=== PATIENT | male | born 1955 | race Caucasian/White ===

== ENCOUNTER 2025-08-17 13:32 | Emergency (ER) | payer MEDICARE, OTHER, SELFPAY ==
[2025-08-17] VITALS (51 sets, daily range): BP systolic 102–165; BP diastolic 68–115; BMI 32.6
--- NOTE | 2025-08-17 13:43 | CON.NEURO ---
Documented by User: Chandrakant Muniz MD 08/17/25 17:18
Neuro Assessment/Plan
Assessment
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 Etiology of his thrombus remains crytptogenic given
relatively unremarkable PMH; suspect cardiomebolic or paradoxical embolism (?recent flight). He appears to have a significant recovery s/p TNK with repeat CTA demonstrating patency of the basilar artery and only mild residual R P1. However given
significantly fluctuating mentation and mild residual symptoms (dysarthria, nystagmus, ataxia), warrants close monitoring s/p TNK and thrombectomy watch. Another additional possiblity is acute symptomatic seizure given rapid improvement and apparent
foaming at the mouth on arrival; although no convulsion was witnessed.
Plan
- transfer initiated to [facility] for closer monitoring/thrombectomy watch
- s/p TNK (08/17 14:10).
- repeat non-contrast head CT in 24 hours
- hold all AC including DVT pending repeat head CT; if no evidence of bleed can start ASA 81 mg
- continue NIHSS per unit protocol
- start atorvastatin 40 mg daily
- teletmetry monitoring, consider ILR for AFIB monitoring
- BP goal <180/105 s/p TNK
- consider rEEG vs LTM given potential concern for seizrue
Consultation
Order
Date of Consultation: 08/17/25
Requesting Provider: Doc
Reason for Consult: Stroke
Subjective/Objective
Subjective Data
Date of Service: August 17, 2025
Objective Data
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
Last known well was around 13:00. 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 Upon landing, he reported left sided headache and mild expressive aphasia. He then had presyncopal symptoms and collapsed after losing his balance with
likely LOC. On EMS arrival, he was noted to be hypertensive with foaming at the mouth, however without witnessed convulsion.
Initial NIHSS at 13:40 was 18 (-1 LOC, -2 LOC commands, -2 LOC questions, -1 right nasolabial fold flattening, -4 RUE drift, -4 RLE drift, -3 severe aphasia, -1 dysarthria). Initial NCHCT demonstrated no large transcortical infarct or hemmorrhage,
CTA with high grade stenosis of basilar and bilateral proximal P1 high grade stenosis with distal reconstitution.
He was deemed a candidate for TNK, which was administered at 14:10. Several minutes after, the patient symptoms rapidly improved and he was awake, alert, conversant without focal weakness or aphasia (NIHSS ~1 for RUE ataxia). Over the course of the
next hour, his symptoms continued to fluctuate with intermittent lethargy/mild aphasia, worsening RUE ataxia, however overall significantly improved from arrival. BP remained <180/105.
Repeat NIHSS 14:50 was 4 (-1 LOC, -1 mild aphasia, -1 dysarthria, -1 ataxia)
Repeat CTA demonstrated significant improvement of the basilar and P1 thrombus, with only mild residual thrombus in the RP1.
After discussion with [facility], he was transferred to [facility] for further management.
While there was initial mention for AFIB per EMS, this has not been independently verified via chart review and family denies this diagnosis. He is not on any AC and no recent surgeries.
CTAH&N 08/17 13:33: Thrombus in the distal segment of the basilar artery and the proximal P1 segments of the bilateral posterior cerebral arteries with resultant high-grade stenoses. Reconstitution of flow to the bilateral P2 segments, likely from
small patent bilateral posterior communicating arteries.
REPEAT CTA Head 08/17 14:42
Significant improvement of the previously seen basilar artery and bilateral posterior cerebral artery (P1 segment) thrombus. The basilar artery now appears widely patent. Only mild residual thrombus in the right P1 segment, and suspected minimal
thrombus at the junction of the basilar artery and left P1 segment.
Other findings are unchanged compared to the recent prior CT angiogram.
Abnormal Lab Results
08/17/25 08/17/25
13:56 13:59
RBC 4.47 L 10^6/uL
(4.70-6.10)
RDW 14.6 H %
(11.5-14.5)
Plt Count 129 L 10^3/uL
(130-400)
MPV 10.5 H fL
(7.4-10.4)
Absolute Lymphs (auto) 1.0 L 10^3/uL
(1.2-3.4)
Absolute Monos (auto) 1.0 H 10^3/uL
(0.1-0.6)
Lymphocytes % 12.5 L %
(20.5-51.1)
Monocytes % 12.1 H %
(1.7-9.3)
PT 17.1 H Sec
(11.4-14.6)
BUN 27 H mg/dl
(9-20)
Creatinine 1.5 H mg/dL
(0.7-1.3)
Glucose 103 H mg/dl
(70-99)
Troponin I 0.055 H* ng/ml
POC Glucose 107 H mg/dl
(70-99)
08/17/25 13:56
08/17/25 13:56
Vital Signs
Initial and Last Documented VS:
Initial Vital Signs
Pulse Resp BP Pulse Ox
74 20 141/89 96
08/17/25 13:57 08/17/25 13:57 08/17/25 13:57 08/17/25 13:57
Last Documented Vital Signs
Pulse Resp BP Pulse Ox
79 19 145/82 88
08/17/25 15:19 08/17/25 15:19 08/17/25 15:19 08/17/25 15:05
CVA Assessment
Onset of Stroke Symptoms
Date of onset of symptoms: 08/17/25
Time of onset of symptoms: 13:00
Date last time pt seen normal: 08/17/25
Time last time pt seen normal: 12:59
NIH Stroke Score
Level of Consciousness: 1 - Arousable
LOC Questions: 2-Neither correct
LOC Commands: 2-Performs neither correctly
Best Horizontal Gaze: 0-Normal
Visual Barnes: 0=Normal, no visual loss
Facial Palsy: 1=Minor paralysis
Motor - Right Arm: 4=No movement
Motor - Left Arm: 0=No drift 10 seconds
Motor - Right Le-No movement
Motor - Left Le-No drift 5 seconds
Limb Ataxia: 0-Absent
Sensation: 0-Normal
Best Language: 3-Mute/global aphasia
Dysarthria: 1-Mild slurring
Extinction and Inattention: 0-No abnormality
NIH Total Score:: 18
Tenecteplase Contraindications
Inclusion and Exclusion criteria reviewed: Yes
Past History
Past Medical / Surgical History
Past Medical History: Other (HLD)
Review of Systems
-
Unable to obtain full review of systems at this time due to: Patient Non-verbal
All other systems: Reviewed and negative
Physical Exam
-
Neuro exam on initial arrival (~13:40): lethargic, only follows simple 1-step commands, severe aphasia/mute, dysarthria, right hemiplegia.
Neuro exam s/p TNK (~14:20): awake, initially alert (although intermittently lethargic) oriented to person, place, and time, intact naming, repetition and comprehension, PEARLA, prominent non-extinguishing end gaze nystagmus, intact visual barnes,
symmetric smile, intact strength and sensation, mild ataxia on FNF
Data Reviewed
-
CT-A: Report Reviewed and Image Reviewed
CT-Perfusion: Report Reviewed and Image Reviewed
CT Head: Report Reviewed and Image Reviewed
Labs: Report Reviewed
Medications
-
Home Medications
�Medication �Instructions �Recorded
hydrocodone 7.5 mg-acetaminophen 1 ea PO Q6HPRN PRN pain #14 tabs 09/29/11
750 mg tablet (Vicodin ES)
naproxen sodium 220 mg capsule 220 mg PO DAILY 09/29/11
(Aleve)
omeprazole 20 mg capsule,delayed 20 mg PO DAILY 09/29/11
release

Documented by User: Leann Roach DO 08/17/25 14:09
CVA Assessment
NIH Stroke Score
NIH Total Score:: 18
[2025-08-17] MEDS: TNKASE 5 MG IV (14:00)
[2025-08-17 14:01] LABS: Glucose - Point of Care 107 mg/dl (70-99)
--- NOTE | 2025-08-17 14:09 | ED.CVA ---
History of Present Illness
General
Chief Complaint: CVA/TIA Symptoms
Time Seen by Provider: 08/17/25 13:37
Onset of Stroke Symptoms
Onset of symptoms known: Yes
Date of onset of symptoms: 08/17/25
Time of onset of symptoms: 13:00
History of Present Illness
History of Present Illness:
70-year-old male with history of hyperlipidemia presenting to the emergency department for strokelike symptoms. 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 He landed at a local airport with his daughter and daughter noted
approximately at 1 PM, patient was complaining of a left-sided headache and had issues with his speech. She notes that he nearly collapsed. No prior history of stroke. No known history of anticoagulation. Medics were called, and noted that
patient was hypertensive. Patient limited historian on arrival given critical condition
Past History
Past History
ED Past Medical History: GERD and Hypercholesterolemia (Does not take statins due to side effects)
ED Past Surgical History: Other (Vasectomy)
Social History
Tobacco: Non-smoker
Alcohol: Occasional
Living: with family
Family History
Family History: Diabetes, Hypertension and CAD; Negative Asthma or Cancer
Phy Exam
Physical Exam
Physical Exam:
General: Well-appearing, no clinical signs of dehydration, nontoxic and in no acute distress
HEENT: protecting airway, mild drooling
Neck: appears supple
CV: Normal heart rate, regular rhythm
Resp: No accessory muscle use, no increased work of breathing, lungs clear to auscultation bilaterally
Abd: No distention
Extremities: No deformities, no swelling
Neuro: alert, however significant neurologic deficits with profound aphasia, right upper and lower extremity weakness
: deferred
Rectal: deferred
Psych: Normal affect
Skin: Intact
Scores
NIH Stroke Score
Level of Consciousness: 0 - Alert
LOC Questions: 2-Neither correct
LOC Commands: 1-Performs one correctly
Best Horizontal Gaze: 0-Normal
Visual Barnes: 2=Full hemianopia
Facial Palsy: 2=Partial paralysis
Motor - Right Arm: 2=Partial vs. gravity
Motor - Left Arm: 0=No drift 10 seconds
Motor - Right Le-Partial vs. gravity
Motor - Left Le-No drift 5 seconds
Limb Ataxia: 1-Present in one limb
Sensation: 1-Mild loss
Best Language: 3-Mute/global aphasia
Dysarthria: 2-Severe slurring
Extinction and Inattention: 0-No abnormality
NIH Total Score:: 18
Course
Orders/Labs/Results
Orders:
Orders
08/17/25 Breakfast
NPO
Allow oral meds: No
Allow clear liquids: No
NPO with Ice Chips: No
08/17/25 13:33
Electrocardiogram (*1) Stat
Reason for Study: Other
Other Reason for Exam: neuro symptoms
CT BRAIN PERF STROKE ALERT Urgent
Comment:
Reason For Exam: right sided weakness, headache
CT HEAD STROKE ALERT W/o Cont Urgent
Comment:
Reason For Exam: right sided weakness, headache
CT HEAD/NECK ANG STROKE ALERT Urgent
Comment:
Reason For Exam: right sided weakness, headache
EKG- Treatment ONCE
08/17/25 13:40
Labetalol HCl [Trandate] 20 mg .ROUTE .STK-MED ONE
08/17/25 13:46
Tenecteplase [Tnkase] 25 mg Syringe [Syringe Non-Pump] 0 ml IV NOW
Provider explained risk/benefits to patient &/or caregiver?: Yes
08/17/25 13:56
Complete Blood Count/With Diff Urgent
Comprehensive Metabolic Panel Urgent
PTT Urgent
Prothrombin Time Urgent
Troponin I Urgent
08/17/25 14:42
CT Angio Head W/Wo Iv Contrast [CT Head Angio W/wo Iv Contrast] Stat
Comment:
Reason For Exam: Evalaution for residual basilar occlusion s/p TNK
08/17/25 15:41
CR Chest Portable - 1 View Urgent
Comment:
Reason For Exam: SOB
Reason Study Needs to be Portable: Patient Unstable
Abnormal Lab Results
08/17/25 08/17/25 08/17/25
13:56 13:59 18:06
RBC 4.47 L 10^6/uL
(4.70-6.10)
RDW 14.6 H %
(11.5-14.5)
Plt Count 129 L 10^3/uL
(130-400)
MPV 10.5 H fL
(7.4-10.4)
Absolute Lymphs (auto) 1.0 L 10^3/uL
(1.2-3.4)
Absolute Monos (auto) 1.0 H 10^3/uL
(0.1-0.6)
Lymphocytes % 12.5 L %
(20.5-51.1)
Monocytes % 12.1 H %
(1.7-9.3)
PT 17.1 H Sec
(11.4-14.6)
BUN 27 H mg/dl
(9-20)
Creatinine 1.5 H mg/dL
(0.7-1.3)
Glucose 103 H mg/dl
(70-99)
Troponin I 0.055 H* ng/ml
POC Glucose 107 H mg/dl 108 H mg/dl
(70-99) (70-99)
08/17/25 13:56
08/17/25 13:56
Vital Signs
Initial and Last Documented VS:
Initial Vital Signs
Pulse Resp BP Pulse Ox
74 20 141/89 96
08/17/25 13:57 08/17/25 13:57 08/17/25 13:57 08/17/25 13:57
Last Documented Vital Signs
Pulse Resp BP Pulse Ox
54 18 131/86 96
08/17/25 18:24 08/17/25 18:24 08/17/25 18:05 08/17/25 18:24
MDM/Problems Addressed
MDM/Problems Addressed:
70 male with history of hyperlipidemia presenting for strokelike symptoms which started about 30 minutes prior to arrival. Vital signs on arrival are normal.
On exam, significant neurologic deficits with profound aphasia, slurred speech, facial droop, right upper and lower extremity weakness with concern for intracranial hemorrhage versus large vessel occlusion. Stroke alert called and patient
immediately brought to CT imaging. Neurology fellow at bedside soon after patient's arrival.
13:50 - CT head without any acute abnormality, however CT angio is consistent with thrombus in the distal basilar artery and proximal P1 segments of the bilateral brine maker. In shared decision making with daughter at bedside, who confirms no significant
comorbidities and no anticoagulation, best management at this time would be TNK. NIH is greater than 16.
14:10 -TNK administered with profound response. Patient is speaking, moving all extremities. Still has some issues with coordination and is reporting some double vision which is consistent with location of occlusion. In discussion with neurology
fellow, and discussions with [place] stroke fellow at [facility] for possible transfer
15:45 -a repeat CT angio was obtained for disposition purposes, thrombectomy and transfer versus admission to our facility for continued monitoring. Repeat CT shows significant improvement in the previously seen basilar artery and bilateral
posterior cerebral artery thrombus. The basilar artery is now widely patent with only residual thrombus in the right P1 segment. Given this information, and in discussion with neurology, continuing discussions regarding transfer versus admission
to our ICU
16:00 -discussion with neurology, still recommending transfer to [facility] given residual clot, and patient is having some waxing and waning confusion. Also mildly low oxygen saturations.
17:00 -difficulty with transfer, no ALS ambulance available at this time. Will proceed with flying. Chest x-ray does show some mild pulmonary edema. Holding any diuretics at this time given respiratory stability. Possible aspiration. Will
continue to monitor.
18:00 -ambulance crew arrived. Stable for transfer
*Pulse Oximetry
SaO2: 96
Oxygen Mode of Delivery: Room air
Patient hypoxic: no
*EKG
Interpreted by ED Provider?: Yes
EKG Intrepretation Date: 08/17/25
EKG Intrepretation Time: 14:11
Interpretation: normal
Heart Rate: 73
Rate: normal
Rhythm: sinus
[place]: normal axis
Interval: normal interval
QRS Pattern: normal QRS
Ischemia: no ischemia
*Critical Care Note
Total Time (30-74mins, 75-104mins- exclusive of procedures): 70
comment:
The high probability of a clinically significant, sudden or life threatening deterioration of the neurologic system(s) required my full and direct attention, intervention and personal management. The aggregate critical care time was 70 minutes. This
time is in addition to time spent performing reported procedures but includes the following:
[x] Data Review and interpretation
[x] Patient assessment and monitoring of vital signs
[x] Documentation
[x] Medication orders and management
ED Attending Note
-
Portions of this chart may have been created with voice recognition software.� Occasional wrong word or��sound alike� substitutions may have occurred due to the inherent limitations of voice recognition software.
Discharge Plan
Departure
Patient Disposition: [facility]
Date of Disposition: 08/17/25
Time of Disposition: 15:59
Patient with high blood pressure during this ER visit?: No
Condition: Critical
Discharge Problem:
Acute cerebrovascular accident (CVA), Basilar artery thrombosis
Prescriptions:
No Action
omeprazole 20 MG capsule,delayed release(DR/EC)
20 mg PO DAILY
naproxen sodium [Aleve] 220 MG capsule
220 mg PO DAILY
hydrocodone-acetaminophen [Vicodin ES] 1 EACH tablet
1 ea PO Q6HPRN PRN (Reason: pain) Qty: 14 0RF
Referrals:
UNKNOWN - PT DOES,NOT KNOW [Family Provider]
Hospital Transfer
Other hospital: [facility]
I certify that the patient requires transfer: Yes
Discussed case with accepting physician: Dr. Efra Leblanc
Reason for transfer: specialties available
Interventions
Interventions:
*General Assessment Last Done: 08/17/25 15:00
*Neglect/Abuse Screening Last Done: 08/17/25 15:00
[facility] Fall Risk Assessment Tool Last Done: 08/17/25 14:34
*Risk Screen - Suicide (C-SSRS) Last Done: 08/17/25 17:00
*Nursing Disposition Last Done: 08/17/25 18:24
ED- Pulmonary Assessment Last Done: 08/17/25 14:20
ED- Neurological Assessment Last Done: 08/17/25 14:53
ED- Cardiac Assessment Last Done: 08/17/25 14:20
ED Swallowing Screen Last Done: 08/17/25 13:51
Discharge Date and Time
Discharge Date/Time: 08/17/25 18:25
Print Language: SRI LANKAN
[2025-08-17 14:17] LABS: Hematocrit 39.7 % (39.0-52.0); Hemoglobin 13.4 g/dL (13.0-18.0); Mean Corp Hgb Conc. 33.8 g/dL (33.0-37.0); Mean Corpuscular Volume 88.8 fL (80.0-94.0); Nucleated Red Blood Cells % 0 % (-); Platelet Count 129 10^3/uL (130-400); Red Cell Dist. Width 14.6 % (11.5-14.5)
[2025-08-17 14:23] LABS: INR 1.38; PT 17.1 Sec (11.4-14.6)
[2025-08-17 14:24] LABS: APTT 29.9 Sec (23.4-35.0)
[2025-08-17 14:26] LABS: ALT (SGPT) 48 U/L (0-50); AST (SGOT) 39 U/L (17-59); Albumin 4.2 g/dl (3.5-5.0); Alkaline Phosphatase 52 U/L (38-126); Blood Urea Nitrogen 27 mg/dl (9-20); Calcium 9.4 mg/dl (8.4-10.2); Carbon Dioxide 26 mmol/L (22-30); Chloride 102 mmol/L (98-107); Glucose 103 mg/dl (70-99); Potassium 4.5 mmol/L (3.5-5.1); Sodium 136 mmol/L (135-145); Total Protein 6.9 g/dl (6.3-8.2); eGFR 50.08
[2025-08-17 14:50] LABS: Troponin I 0.055 ng/ml
[2025-08-17 18:17] LABS: Glucose - Point of Care 108 mg/dl (70-99)
== END 2025-08-17 18:25 | disposition short-term general hospital (02) ==
LOC: EMR 13:32
PROVIDERS: EMERGENCY PHYSICIAN Student in an Organized Health Care Education/Training Program
DX: I63.02 Cerebral infarction due to thrombosis of basilar artery (principal); I63.333 Cerebral infarction due to thrombosis of bilateral posterior cerebral arteries; R47.01 Aphasia; R29.810 Facial weakness; G81.91 Hemiplegia, unspecified affecting right dominant side; R29.718 NIHSS score 18; J81.1 Chronic pulmonary edema; E78.00 Pure hypercholesterolemia, unspecified; K21.9 Gastro-esophageal reflux disease without esophagitis
CPT/HCPCS: 99291; 96374; 0042T; 70450; 70496; 70498; 71045; 80053; 82962; 84484; 85025; 85610; 85730; 93005; J3101; Q9967